=== PATIENT | male | born 1980 | race Two or more races ===

== ENCOUNTER 2024-08-30 10:28 | Emergency (ER) | payer MEDICAID, SELFPAY ==
[2024-08-30 10:39] VITALS: BP 188/111; PULSE 66; RESP 18; TEMP 37.2; O2SAT 100; BMI 24.2
[2024-08-30 10:56] VITALS: BP 188/111; PULSE 66
[2024-08-30] MEDS: cloNIDine HCL 0.1 MG TABLET 0.2 MG PO (10:56)
[2024-08-30 13:32] VITALS: BP 127/84; PULSE 76; RESP 18; TEMP 36.6; O2SAT 99
--- NOTE | 2024-08-30 13:36 | PD.EDADULT ---
ED General RME/HPI General Chief complaint: General Adult/Misc Complain Stated complaint: BP CHECK AND MED REFILL Time Seen by Provider: 08/30/24 10:31 Arrival date/time: 08/30/24 10:28 44-year-old male with history of elevated blood pressure presents emerged department today stating his blood pressure is elevated and has been out of his blood pressure medication for the last couple of days patient reports he is primarily here to have his blood pressure medication refilled. Patient reports no headache dizziness weakness chest pain or shortness of breath Limitations: no limitations Related Data Previous Rx's ?Medication ?Instructions ?Recorded lisinopril 20 1 tab PO QDAY #30 tabs 08/30/24 mg-hydrochlorothiazide 25 mg tablet Allergies Allergy/AdvReac Type Severity Reaction Status Date / Time No Known Allergies Allergy Verified 08/30/24 10:30 Review of Systems Review of Systems Systems Reviewed: All systems reviewed, normal except as documented Constitutional Constitutional: Reports system reviewed and no additional complaints, except as documented, Denies fever(s) and Denies headache(s) Eyes Eyes: Reports system reviewed and no additional complaints, except as documented and Denies blurry vision ENT Ears, Nose, Mouth, and Throat: Reports system reviewed and no additional complaints, except as documented, Denies headache(s), Denies nasal congestion and Denies nasal discharge Cardiovascular Cardiovascular: Reports system reviewed and no additional complaints, except as documented, Denies chest pain and Denies dyspnea Respiratory Respiratory: Reports system reviewed and no additional complaints, except as documented, Denies chest congestion, Denies cough and Denies dyspnea Gastrointestinal Gastrointestinal: Reports system reviewed and no additional complaints, except as documented and Denies abdominal pain Integumentary/Breasts Skin/Breast: Reports system reviewed and no additional complaints, except as documented and Denies rash Neurologic Neurologic: Reports system reviewed and no additional complaints, except as documented, Reports as per HPI and Denies headache(s) Past Medical History Social History SMOKING STATUS: Never smoker ED Exam General Limitations: Present no limitations General appearance: Present alert and in no apparent distress Head Head exam: Present atraumatic, normocephalic and normal inspection Eye Eye exam: Present normal appearance, PERRL and EOMI; Absent conjunctival injection ENT ENT exam: Present normal exam, normal oropharynx and mucous membranes moist Neck Neck exam: Present normal inspection, full ROM and trachea midline Chest Chest inspection: Present normal inspection and symmetric chest wall rise Respiratory Respiratory exam: Present normal lung sounds bilaterally; Absent respiratory distress Cardiovascular Cardiovascular exam: Present regular rate, normal rhythm and normal heart sounds; Absent bradycardia, tachycardia, systolic murmur, diastolic murmur or JVD Abdominal Exam Abdominal exam: Present soft and normal bowel sounds; Absent distention, tenderness, guarding, rebound or rigidity Extremities Exam Extremities exam: Present normal inspection and full ROM Back Exam Back exam: Present normal inspection and full ROM Neurological Exam Neurological exam: Present alert, oriented X3 and CN II-XII intact Psychiatric Psychiatric exam: Present normal affect and normal mood Skin Skin exam: Present warm, dry, intact and normal color Course Quality Measures none Orders Category Date Time Status cloNIDine HCL [Catapres] Med 08/30/24 10:48 Discontinued 0.2 mg PO X1 ONE Vital Signs Vital signs: Vital Signs Temperature 98.9 F 08/30/24 10:39 Pulse Rate 66 08/30/24 10:39 Respiratory Rate 18 08/30/24 10:39 Blood Pressure 188/111 H 08/30/24 10:39 Pulse Oximetry (%) 100 08/30/24 10:39 Oxygen Delivery Method Room Air 08/30/24 10:39 O2 saturation 100% r/a wnl MDM Patient data External records reviewed:: [facility] previous records Clinical information provided by:: patient Social determinants that could affect healthcare access:: none Patient has the following chronic illnesses:: None How is presenting disease/condition affected by chronic disease/condition?: no chronic disease Evaluation data The following diagnostics were reviewed and interpreted by me:: other (specify) Lab and/or radiology exams considered but not ordered:: Consider not ordered Interpretation Summary: N/A Medications Medications considered but not ordered:: Given Medication administrations:: Medication Administration History Discontinued Medications Clonidine (Clonidine Hcl 0.1 Mg Tablet) 0.2 mg PO X1 ONE Stop: 08/30/24 10:49 Last Admin: 08/30/24 10:56 Dose: 0.2 mg Documented By: MP Given Consultations Consultation(s) initiated? (list below): No Diagnosis Differential Diagnosis ED Complaint MDM: Hypertension, asymptomatic hypertension Most likely diagnosis given after review of the tests above:: Asymptomatic hypertension Admission Indicated Admission indicated?: not indicated Explain why admission is indicated or not indicated:: No criteria Admission Request Was there a request for admission?: No Disposition Plan Disposition Plan: Discharge Discharge Attestation Discharge Attestation: The patient and all family members were given an opportunity to ask questions and understood the discharge instructions. Discharge instructions specifically effects, indications for sooner follow up or return to the emergency department, and the expected course of current diagnosis. Patient condition: Stable Medical Decision Making MDM Narrative MDM Narrative: 44-year-old male with history of elevated blood pressure presents emergency department today stating his blood pressure is elevated and has been out of his blood pressure medication for the last couple of days patient reports he is primarily here to have his blood pressure medication refilled. Patient reports no headache dizziness weakness chest pain or shortness of breath On exam patient well-appearing patient does not appear ill or in no acute distress Patient given medication for his blood pressure which brought down his blood pressure nicely Patient's blood pressure medication refilled At time reevaluation patient reports no chest pain no shortness of breath no headache dizziness or weakness Differential Diagnosis Differential Diagnosis: Hypertension, asymptomatic hypertension Medical Records Medical records reviewed: Yes I reviewed the patient's medical records. Discharge Plan Plan Patient Disposition: HOME (Self Care) Disposition Comment: Stable Prescriptions/Referrals Prescriptions/Med Rec: New lisinopril-hydrochlorothiazide 20-25 mg tablet 1 tab PO QDAY Qty: 30 0RF Referrals: No Primary/Family,Physician [Primary Care Provider] - In 1 week Problem List Clinical Impression: Asymptomatic hypertension, Medication refill Patient/Caregiver Discharge Instructions Education Materials: ED High Blood Pressure ... Additional Instructions: Please follow up with your primary care doctor in the next 24-48hrs for any worsening symptoms return here immediately Print Language: Citizen Of [place] Stand Alone Forms: Bailee Award Info., Patient Portal Info Letter TERESA/JUDY Supervising Physician TERESA/JUDY Supervising Physician: Dr Clancy
== END 2024-08-30 13:44 | disposition home or self-care (01) ==
PROVIDERS: Emergency Provider Emergency Medicine
DX: Z76.0 Encounter for issue of repeat prescription (principal); I10 Essential (primary) hypertension
CPT/HCPCS: 99282; A9270